=== PATIENT | female | born 1970 | race Caucasian/White ===

== ENCOUNTER 2020-09-12 14:43 | Emergency (ER) | payer OTHER ==
[~2020-09-12] VITALS: Ht 170.2 cm; Wt 99.8 kg
[~2020-09-12 14:43] MED LIST: BACTRIM DS TAB1 EACH PO; KEFLEX500 MG PO; NORCO 5-325 TA1 EACH PO
[2020-09-12 15:24] LABS: URINE BILIRUBIN NEGATIVE (Negative); URINE BLOOD TRACE (Negative); URINE CLARITY CLEAR; URINE COLOR YELLOW; URINE GLUCOSE-RANDOM NEGATIVE (Negative); URINE KETONES NEGATIVE (Negative); URINE LEUKOCYTES-REFLEX TRACE (Negative); URINE NITRITE-REFLEX NEGATIVE (Negative); URINE PROTEIN NEGATIVE (Negative); URINE UROBILINOGEN 0.2 E.U./dl (0.2-1.0)
[2020-09-12 15:28] LABS: ABSOLUTE BASOPHILS 0.1 thou/uL (0.0-0.2); ABSOLUTE EOSINOPHILS 0.3 thou/uL (0.0-0.7); ABSOLUTE MONOCYTES 0.7 thou/uL (0.0-1.2); ABSOLUTE NEUTROPHILS 6.4 thou/uL (1.6-8.1); BASOPHILS 0.7 %; EOSINOPHILS 3.1 %; HEMATOCRIT 39.8 % (37.0-47.0); HEMOGLOBIN 13.5 gm/dL (12.0-15.0); LYMPHOCYTES 11.9 %; MCH 28.8 pg (26.0-34.0); MCHC 33.9 g/dL (28.0-37.0); MONOCYTES 8.7 %; MPV 6.9 fl. (7.2-11.1); NUCLEATED RBCS 0 /100WBC; PLATELET COUNT* 376 thou/uL (150-400); POLYS 75.6 %; RBC 4.69 mil/uL (4.20-5.00); RDW-CV 12.7 % (10.5-14.5); WBC 8.5 thou/uL (4.0-11.0)
[2020-09-12 15:33] LABS: SQUAMOUS 4-10 Moderate /LPF (0-3)
[2020-09-12 15:34] LABS: CASTS None Seen /LPF (None Seen); MUCUS None Seen strn/LPF (None Seen); URINE RBC 0-2 Rare /HPF (0-2); URINE WBC-REFLEX 6-15 Few /HPF (0-5)
[2020-09-12 15:35] LABS: CRYSTALS None Seen /LPF (None Seen)
[2020-09-12 15:44] LABS: CREATININE 0.8 mg/dL (0.6-1.3); POTASSIUM 3.4 mmol/L (3.5-5.1)
[2020-09-12 15:48] LABS: ALBUMIN 3.2 g/dL (3.4-5.0); TOTAL BILIRUBIN 0.5 mg/dL (<0.1-1.0); TOTAL PROTEIN 7.4 g/dL (6.4-8.2)
--- NOTE | 2020-09-12 16:36 | EKG ---
[place] [address] ELECTROCARDIOGRAM REPORT Name: EVONNE ASH Room: [facility]#: [id number] Admission: 09/12/20 Attend Phys: Discharge: Date of : 72 Date of Service: 09/12/20 1526 Report #: [id number] THIS REPORT FOR: //name// [facility] ED Test Date: 2020-09-12 Test Time: 15:26:42 Pat Name: EVONNE ASH Department: Room: Gender: F [employer]: : 1970 Requested By: Scarlett Rubio Order Number: [id number] MD: Pedrito Schmid Measurements Intervals [place] Rate: 92 P: 58 [place]: 164 QRS: 22 QRSD: 79 T: 65 QT: 354 QTc: 438 Interpretive Statements Sinus rhythm Ventricular premature complex Low voltage, precordial leads Baseline wander in lead(s) V1,V2 No previous ECG available for comparison Electronically Signed On 09-12-2020 16:36:31 REVERBERATORY SKIMMER by Pedrito Schmid [email or web address] <ELECTRONICALLY SIGNED> By: Pedrito Schmid MD, [facility] 09/12/20 1636 1526 1526 Pedrito Schmid MD, [facility] /EPI
[2020-09-12] MEDS ORDERED: CEFDINIR300 MG PO (17:27)
[2020-09-12] MEDS ORDERED: HYDROCODON-ACE1 EAC7 PO (17:27)
[2020-09-12] MEDS ORDERED: ZOFRAN ODT4 MG PO (17:27)
[2020-09-12] MEDS ORDERED: IBUPROFEN 800800 M1 PO (17:27)
[2020-09-12 18:02] VITALS: BP 116/71
== END 2020-09-12 18:03 | disposition home or self-care (01) ==
LOC: M.ERS 14:43
PROVIDERS: Nurse Practitioner Family
DX: N12 Tubulo-interstitial nephritis, not specified as acute or chronic (principal); F17.210 Nicotine dependence, cigarettes, uncomplicated; Z88.6 Allergy status to analgesic agent